=== PATIENT | female | born 1980 | race Caucasian/White ===

== ENCOUNTER 2017-02-09 16:17 | Emergency (ER) | payer OTHER ==
[~2017-02-09] VITALS: Ht 160 cm; Wt 66.0 kg
[~2017-02-09 16:17] MED LIST: HYDR-3534 PO; VIBR100C PO
[2017-02-09 16:43] VITALS: BP 121/81; PULSE 94; RESP 16; TEMP 99; O2SAT 99
--- NOTE | 2017-02-09 17:14 | RADHPO ---
EXAM DATE/TIME: 02/09/2017 16:57 [place] COMPARISON: No previous studies available for comparison. INDICATIONS : Fell, complains of left knee pain. MEDICAL HISTORY : None. SURGICAL HISTORY : None. ENCOUNTER: Initial ACUITY: 1 day PAIN SCORE: 8/10 LOCATION: Left knee FINDINGS: Four view examination of the left knee demonstrates no evidence of fracture or dislocation. Bony min eralization is normal. The articular surfaces are intact. The suprapatellar soft tissues have a nor mal configuration. CONCLUSION: Unremarkable examination of the left knee. Peng England Jr., MD on February 09, 2017 at 17:12 Board Certified Radiologist. This report was verified electronically.
[2017-02-09] MEDS ORDERED: ULTR50TA5 PO (17:30)
[2017-02-09] MEDS ORDERED: IBUP800T23 PO (17:30)
--- NOTE | 2017-02-09 17:31 | PD ---
HPI . Left knee injury Chief Complaint: Musculoskeletal Complaint Time Seen by Provider: 17:24 Travel History International Travel<30 days: No Contact w/Intl Traveler<30days: No Traveled to known affect area: No History of Present Illness HPI Patient presents following a left knee injury. 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 When the patient went in to check on things, she slipped on the floor and landed on a flexed left knee. She is able to ambulate. PFSH Past Medical History Hx Anticoagulant Therapy: No Asthma: Yes Cardiovascular Problems: No Chemotherapy: No Cerebrovascular Accident: No Diabetes: No Diminished Hearing: No Kidney Stones: Yes Respiratory: Yes (asthma) Thyroid Disease: Yes Tetanus Vaccination: < 5 Years Influenza Vaccination: No ?: Not LMP: 01/15/17 : 3 Para: 3 Ovarian Cysts: Yes Tubal Ligation: Yes (2005) Past Surgical History Section: Yes (3) Gynecologic Surgery: Yes (tubal ligation) Hysterectomy: No Social History Alcohol Use: Yes (socially beer or wine) Tobacco Use: No (quit over 10 years ago) Substance Use: No Allergies-Medications (Allergen,Severity, Reaction): Coded Allergies: Keflex (Verified Allergy, Severe, Hives, 02/09/17) Reported Meds & Prescriptions Reported Meds & Active Scripts Active No Active Prescriptions or Reported Medications Review of Systems Except as stated in HPI: all other systems reviewed are Neg Musculoskeletal: Positive: Arthralgias Skin: Positive Change in Pigmentation (some erythema at the site of impact) Physical Exam Narrative GENERAL: Awake and alert and in no acute distress. SKIN: Warm and dry. Mild erythema just distal to the left patella. CARDIOVASCULAR: Regular rate and rhythm. RESPIRATORY: No accessory muscle use. MUSCULOSKELETAL: No obvious deformities. No edema. Locally tender left patella. NEUROLOGICAL: Awake and alert. No obvious cranial nerve deficits. Motor grossly within normal limits. Normal speech. PSYCHIATRIC: Appropriate mood and affect; insight and judgment normal. Data Data Last Documented VS Vital Signs Date Time Temp Pulse Resp B/P Pulse Ox O2 Delivery O2 Flow Rate FiO2 02/09/17 17:07 16 02/09/17 16:43 99.0 94 121/81 99 Orders Knee, Complete (4vws) (02/09/17 16:54) MDM Medical Decision Making Medical Screen Exam Complete: Yes Emergency Medical Condition: Yes Differential Diagnosis Differential diagnosis of extremity trauma includes but is not limited to fracture, sprain or strain, dislocation, contusion Narrative Course Patient presents for evaluation of left knee injury. Her physical exam is basically unremarkable. She will probably have a bruise inferior to the patella. Last Impressions Knee X-Ray 02/09/17 [id number] Signed Impressions: Service Date/Time: January 16:57 - CONCLUSION: Unremarkable examination of the left knee. Peng England Jr., MD The x-ray was independently viewed by me. Diagnosis Primary Impression: Contusion of left knee Qualified Code: S80.02XA - Contusion of left knee, initial encounter Patient Instructions: General Instructions, RICE Therapy (ED) Med/Other Pt SpecificInfo: Prescription(s) given Scripts Tramadol (Ultram)50 Mg Tab50 Mg PO Q4H PRN (PAIN) #12 TAB Ref 0 Prov:Rossy Claire MD 02/09/17 Ibuprofen 800 Mg [id number] Mg PO Q8H PRN (pain) #15 TAB Ref 0 Prov:Rossy Claire MD 02/09/17 Disposition: 01 DISCHARGE HOME Condition: Stable Rossy Claire MD Feb 09, 2017 17:31
== END 2017-02-09 17:51 | disposition home or self-care (01) ==
LOC: PHEFT 16:17
DX: S80.02XA Contusion of left knee, initial encounter (principal); W01.0XXA Fall on same level from slipping, tripping and stumbling without subsequent striking against object, initial encounter; Y93.89 Activity, other specified; Y99.0 Civilian activity done for income or pay
CPT/HCPCS: 73564; 99283

== ENCOUNTER 2017-02-17 07:16 | Emergency (ER) | payer OTHER ==
[~2017-02-17] VITALS: Ht 160 cm; Wt 65.0 kg
[~2017-02-17 07:16] MED LIST changes: -HYDR-3534 PO; +IBUP800T23 PO; +ULTR50TA5 PO; -VIBR100C PO
[2017-02-17 07:22] VITALS: BP 123/84; PULSE 92; RESP 18; TEMP 98.1; O2SAT 99
--- NOTE | 2017-02-17 07:32 | PD ---
HPI Chief Complaint: Abdominal Pain Time Seen by Provider: 07:31 Travel History International Travel<30 days: No Contact w/Intl Traveler<30days: No Traveled to known affect area: No History of Present Illness HPI 36-year-old female came to the emergency room with history of lower abdominal pain since yesterday. Patient says that yesterday it started off as a dull ache and this morning it has been excruciating. She vomited once this morning at home. No history of diarrhea. Patient incidentally has been to this emergency room and in the main hospital multiple times for abdominal pain in the past. In fact she said that she has also seen a GI specialist and was worked up and told that everything was fine. She seems anxious and perplexed and does not know why this keeps happening to her. Vital signs were otherwise stable in the ER. She seemed more anxious than anything. PFSH Past Medical History Narrative Medical List of her past medical, surgical, social and family history was reviewed from the nursing note. Hx Anticoagulant Therapy: No Asthma: Yes Cardiovascular Problems: No Chemotherapy: No Cerebrovascular Accident: No Diabetes: No Diminished Hearing: No Kidney Stones: Yes Respiratory: Yes (asthma) Thyroid Disease: Yes : 3 Para: 3 Ovarian Cysts: Yes Tubal Ligation: Yes (2005) Past Surgical History Section: Yes (3) Gynecologic Surgery: Yes (tubal ligation) Hysterectomy: No Social History Alcohol Use: Yes (socially beer or wine) Tobacco Use: No (quit over 10 years ago) Substance Use: No Allergies-Medications (Allergen,Severity, Reaction): Coded Allergies: Keflex (Verified Allergy, Severe, Hives, 02/09/17) Comments List of her allergies reviewed from the nursing note. Reported Meds & Prescriptions Reported Meds & Active Scripts Active Macrobid (Nitrofurantoin Monoh/Nitrofur Macro) 100 Mg Cap 100 Mg PO BID Narrative Medication List of her home medications reviewed from the nursing note. Review of Systems Except as stated in HPI: all other systems reviewed are Neg Physical Exam Narrative GENERAL: Awake, alert, anxious, mild distress SKIN: Focused skin assessment warm/dry. HEAD: Atraumatic. Normocephalic. EYES: Pupils equal and round. No scleral icterus. No injection or drainage. ENT: No nasal bleeding or discharge. Mucous membranes pink and moist. NECK: Trachea midline. No JVD. CARDIOVASCULAR: Regular rate and rhythm. No murmur appreciated. RESPIRATORY: No accessory muscle use. Clear to auscultation. Breath sounds equal bilaterally. GASTROINTESTINAL: Abdomen soft, tender in the right lower quadrant area, nondistended. Hepatic and splenic margins not palpable. MUSCULOSKELETAL: No obvious deformities. No clubbing. No cyanosis. No edema. NEUROLOGICAL: Awake and alert. No obvious cranial nerve deficits. Motor grossly within normal limits. Normal speech. PSYCHIATRIC: Appropriate mood and affect; insight and judgment normal. Data Data Last Documented VS Orders Urinalysis - C+S If Indicated (02/17/17 07:30) Ed Urine Pregnancytest Poc (02/17/17 07:30) Complete Blood Count With Diff (02/17/17 07:38) Comprehensive Metabolic Panel (02/17/17 07:38) Lipase (02/17/17 07:38) Iv Access Insert/Monitor (02/17/17 07:38) Ecg Monitoring (02/17/17 07:38) Oximetry (02/17/17 07:38) Ondansetron Inj (Zofran Inj) (02/17/17 07:45) Sodium Chloride 0.9% Flush (Ns Flush) (02/17/17 07:45) Ketorolac Inj (Toradol Inj) (02/17/17 07:45) C-Reactive Protein (Crp) (02/17/17 07:38) Urine Culture (02/17/17 07:34) Nitrofurantoin Monohyd Macrocr (Macrobid (02/17/17 08:15) Acetamin-Hydrocod 325-5 Mg ([place] 5-325 (02/17/17 08:15) Labs MDM Medical Decision Making Medical Screen Exam Complete: Yes Emergency Medical Condition: Yes Medical Record Reviewed: Yes Differential Diagnosis Acute appendicitis, acute on chronic abdominal pain, ruptured ovarian cyst, UTI Narrative Course 8:37 AM patient has had at least 4 CAT scans over the past couple years of her abdomen and pelvis. They have always been negative. I ordered blood test and my plan was if the CBC and or CRP was elevated I would order a CAT scan. So far her CBC is within normal limits as well as her chemistry. Awaiting for the CRP. Her UA had many bacteria. I've given her dose of Macrobid. She has been medicated for pain. 9:26 AM CRP came back and completely within normal limit. I will discharge this patient home. I am in firm belief that her symptoms are acute on chronic abdominal pain. Procedures EKG Prior to Arrival: No Diagnosis Primary Impression: acute on chronic abdominal pain Additional Impressions: Abdominal pain, unspecified site UTI (urinary tract infection) Qualified Code: N39.0 - Urinary tract infection without hematuria, site unspecified Referrals: Primary Care Physician 3 days Additional Instructions: Take Tylenol/Motrin/ibuprofen for your pain. Drink lots of fluid and bedrest. Follow-up with your primary care in couple days to get a referral to a [facility] specialist. Med/Other Pt SpecificInfo: Prescription(s) given Scripts Nitrofurantoin Monohydrate Macrocrystals (Macrobid)100 Mg [id number] Mg PO BID #10 CAP Ref 0 Prov:Chika Newman MD 02/17/17 Disposition: 01 DISCHARGE HOME Condition: Stable Chika Newman MD Feb 17, 2017 07:32 Urine Collection Time 07:34 White Blood Count 6.0 TH/MM3 Red Blood Count 5.16 MIL/MM3 Hemoglobin 14.6 GM/DL Hematocrit 46.1 % Mean Corpuscular Volume 89.3 FL Mean Corpuscular Hemoglobin 28.2 PG Mean Corpuscular Hemoglobin 31.6 % Concent Red Cell Distribution Width 14.3 % Platelet Count 172 TH/MM3 Mean Platelet Volume 11.0 FL Neutrophils (%) (Auto) 70.8 % Lymphocytes (%) (Auto) 21.2 % Monocytes (%) (Auto) 6.2 % Eosinophils (%) (Auto) 1.2 % Basophils (%) (Auto) 0.6 % Neutrophils # (Auto) 4.2 TH/MM3 Lymphocytes # (Auto) 1.3 TH/MM3 Monocytes # (Auto) 0.4 TH/MM3 Eosinophils # (Auto) 0.1 TH/MM3 Basophils # (Auto) 0.0 TH/MM3 CBC Comment DIFF FINAL Differential Comment Sodium Level 143 MEQ/L Potassium Level 3.7 MEQ/L Chloride Level 111 MEQ/L Carbon Dioxide Level 22.5 MEQ/L Anion Gap 10 MEQ/L Blood Urea Nitrogen 14 MG/DL Creatinine 0.75 MG/DL Estimat Glomerular Filtration 86 ML/MIN Rate Random Glucose 114 MG/DL Calcium Level 9.2 MG/DL Total Bilirubin 0.5 MG/DL Aspartate Amino Transf 19 U/L (AST/SGOT) Alanine Aminotransferase 35 U/L (ALT/SGPT) Alkaline Phosphatase 53 U/L C-Reactive Protein LESS THAN 0.29 MG/DL Total Protein 8.1 GM/DL Albumin 4.0 GM/DL Lipase 161 U/L MDM Medical Decision Making Medical Screen Exam Complete: Yes Emergency Medical Condition: Yes Medical Record Reviewed: Yes Differential Diagnosis Acute appendicitis, acute on chronic abdominal pain, ruptured ovarian cyst, UTI Narrative Course 8:37 AM patient has had at least 4 CAT scans over the past couple years of her abdomen and pelvis. They have always been negative. I ordered blood test and my plan was if the CBC and or CRP was elevated I would order a CAT scan. So far her CBC is within normal limits as well as her chemistry. Awaiting for the CRP. Her UA had many bacteria. I've given her dose of Macrobid. She has been medicated for pain. 9:26 AM CRP came back and completely within normal limit. I will discharge this patient home. I am firmly believes that her symptoms are acute on chronic abdominal pain. Procedures EKG Prior to Arrival: No Diagnosis Primary Impression: acute on chronic abdominal pain Additional Impressions: Abdominal pain, unspecified site UTI (urinary tract infection) Qualified Code: N39.0 - Urinary tract infection without hematuria, site unspecified Referrals: Primary Care Physician 3 days Additional Instructions: Take Tylenol/Motrin/ibuprofen for your pain. Drink lots of fluid and bedrest. Follow-up with your primary care in couple days to get a referral to a [facility] specialist. Med/Other Pt SpecificInfo: Prescription(s) given Scripts Nitrofurantoin Monohydrate Macrocrystals (Macrobid)100 Mg [id number] Mg PO BID #10 CAP Ref 0 Prov:Chika Newman MD 02/17/17 Disposition: 01 DISCHARGE HOME Condition: Stable Chika Newman MD Feb 17, 2017 07:32
[2017-02-17 07:42] LABS: BLOOD, URINE NEG (NEG); GLUCOSE,URINE NEG (NEG); KETONE, URINE NEG (NEG); NITRITE,URINE NEG (NEG)
[2017-02-17 07:44] LABS: METHOD OF COLLECTION CLEAN CATCH; URINE COLOR YELLOW (YELLW/STRAW)
[2017-02-17] MEDS ORDERED: SODIUM CHLORIDE 0.9% FLUSH 10 ML FLUSH IV FLUSH PRN (07:45)
[2017-02-17] MEDS ORDERED: ONDANSETRON HCL 4 MG/2 ML VIAL IVP ONE (07:45)
[2017-02-17] MEDS ORDERED: KETOROLAC TROMETHAMINE 30 MG/ML (IVP) VIAL IVP ONE (07:45)
[2017-02-17 07:50] LABS: BACTERIA, URINE MOD /hpf; COMMENT (UR) CULTURE INDICATED; CULTURE IF INDICATED CULTURE INDICATED; SQUAMOUS EPITHELIAL CELL URINE 0-5 /hpf (0-5); WBC, URINE 0-2 /hpf (0-5)
[2017-02-17 07:53] VITALS: BP 139/89; PULSE 86; RESP 18; O2SAT 99
[2017-02-17 07:55] VITALS: O2SAT 99
[2017-02-17 08:05] LABS: AUTOMATED NEUTROPHIL # 4.2 TH/MM3 (1.8-7.7); BASOPHIL % 0.6 % (0.0-2.0); EOSINOPHIL # 0.1 TH/MM3 (0-0.4); EOSINOPHIL % 1.2 % (0.0-4.0); HEMATOCRIT 46.1 % (35.0-46.0); HEMO FLAGS DIFF FINAL; LYMPH % 21.2 % (9.0-44.0); LYMPHOCYTE # 1.3 TH/MM3 (1.0-4.8); MEAN CELL VOLUME 89.3 FL (80.0-100.0); MEAN CORPUSCULAR HEMOGLOBIN 28.2 PG (27.0-34.0); MEAN CORPUSCULAR HGB CONC 31.6 % (32.0-36.0); MONO % 6.2 % (0.0-8.0); NEUT % 70.8 % (16.0-70.0); PLATELET COUNT 172 TH/MM3 (150-450); RED BLOOD COUNT 5.16 MIL/MM3 (4.00-5.30); RED CELL DISTRIBUTION WIDTH 14.3 % (11.6-17.2)
[2017-02-17 08:12] LABS: CHLORIDE 111 MEQ/L (98-107); POTASSIUM 3.7 MEQ/L (3.5-5.1); SODIUM (NA) 143 MEQ/L (136-145)
[2017-02-17] MEDS ORDERED: NITROFURANTOIN MONOHYD MACROCR 100 MG CAP PO ONE (08:15)
[2017-02-17] MEDS ORDERED: ACETAMINOPHEN/HYDROcodone 325 MG/5 MG TAB PO ONE (08:15)
[2017-02-17 08:16] LABS: ANION GAP 10 MEQ/L (5-15); BICARBONATE 22.5 MEQ/L (21.0-32.0); BLOOD UREA NITROGEN 14 MG/DL (7-18)
[2017-02-17 08:18] LABS: ALT (GPT) 35 U/L (10-53); AST (GOT) 19 U/L (15-37)
[2017-02-17 08:19] LABS: GLOMERULAR FILTRATION RATE 86 ML/MIN (>89)
[2017-02-17 08:20] LABS: TOTAL BILIRUBIN ADULT 0.5 MG/DL (0.2-1.0)
[2017-02-17 08:21] LABS: ALKALINE PHOSPHATASE 53 U/L (45-117)
[2017-02-17 09:02] VITALS: BP 123/74; PULSE 91; RESP 18; O2SAT 98
[2017-02-17 09:21] VITALS: RESP 18
[2017-02-17] MEDS ORDERED: MACR100C2 PO (09:31)
== END 2017-02-17 09:56 | disposition home or self-care (01) ==
LOC: PHED 07:16
DX: N39.0 Urinary tract infection, site not specified (principal); J45.909 Unspecified asthma, uncomplicated; E07.9 Disorder of thyroid, unspecified; Z87.442 Personal history of urinary calculi; Z87.891 Personal history of nicotine dependence
CPT/HCPCS: 80053; 81001; 83690; 84703; 85025; 86140; 87086; 96374; 96375; 99284; J1885; J2405

== ENCOUNTER 2017-03-20 19:09 | Emergency (ER) | payer OTHER ==
[~2017-03-20] VITALS: Ht 160 cm; Wt 65.3 kg
[~2017-03-20 19:09] MED LIST changes: -IBUP800T23 PO; +MACR100C2 PO; -ULTR50TA5 PO
[2017-03-20 19:26] VITALS: BP 128/88; PULSE 110; RESP 18; TEMP 98.4; O2SAT 100
[2017-03-20] MEDS ORDERED: SILVER SULFADIAZINE 1% CR 50 GM JAR TOPICAL ONE (20:15)
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
[2017-03-20] MEDS ORDERED: IBUP800T23 PO (20:17)
[2017-03-20] MEDS ORDERED: SILV1CRE20 TOPICAL (20:17)
== END 2017-03-20 20:36 | disposition home or self-care (01) ==
LOC: PHED 19:09 → PHEFT 20:36
DX: T23.132A Burn of first degree of multiple left fingers (nail), not including thumb, initial encounter (principal); X12.XXXA Contact with other hot fluids, initial encounter; Y93.G3 Activity, cooking and baking
CPT/HCPCS: 16000